=== PATIENT | female | born 1955 | race American Indian/Alaskan Native ===

== ENCOUNTER 2016-11-24 08:17 | Outpatient (CLI) | payer OTHER ==
[2016-11-24] MEDS ORDERED: WATER FOR INJ (PF) 10 ML ONE (09:39)
[2016-11-24] MEDS ORDERED: KINEVAC IV ONE ×2 (09:40→10:00)
[2016-11-24] MEDS ORDERED: WATER FOR INJ (PF) IV SCH (10:00)
--- NOTE | 2016-11-24 15:39 | Nuclear Medicine Report ---
HIDA WITH CCK INDICATION: RUQ pain. History of sludge on a 2015 MRI at [place]. COMPARISON: None similar. FINDINGS: Dynamic right upper quadrant imaging performed in the anterior projection over 60 minutes following uneventful intravenous administration of 5 mCi of Technetium 99m Choletec. Prompt and homogenous hepatic radiotracer uptake with subsequent washout seen with gallbladder bowel activity seen at 20 minutes. Subsequently, 1.5 mcg of cholecystokinin infused intravenously over a period of 3 minutes with the patient's symptoms duplicated. The calculated ejection fraction is 3% (normal greater than 35%). CONCLUSION: Biliary dyskinesia with gallbladder ejection fraction of 3% and patient's symptoms reproduced following CCK, as described. Please correlate. Thank you for the opportunity to participate in this patient's care.
== END 2016-11-24 08:18 | disposition home or self-care (01) ==
LOC: NM 08:17
PROVIDERS: ATTEND Surgery
DX: K82.8 Other specified diseases of gallbladder (principal)
CPT/HCPCS: 78227; A9537; J2805

== ENCOUNTER 2017-01-01 11:07 | Day surgery (SDC) | payer OTHER ==
[~2017-01-01 11:07] MED LIST: ANCEF/STERILE WATER 2 GM/20 ML IV NR
--- NOTE | 2017-01-01 12:36 | Anesthesia Consultation ---
Anesthesia Consult and Med Hx Date of service: 01/01/17 - Airway Anesthetic Teeth Evaluation: Chipped ROM Head & Neck: Adequate Mental/Hyoid Distance: Adequate Mallampati Class: Class I Intubation Access Assessment: Good - Pulmonary Exam CTA: Yes - Cardiac Exam Cardiac Exam: RRR - Pre-Operative Health Status ASA Pre-Surgery Classification: ASA3 Proposed Anesthetic Plan: General - Pulmonary Hx Smoking: No Hx Sleep Apnea: No (RACHEL PRE SCREEN LOW RISK) - Cardiovascular System Hx Hypertension: Yes (X 20 YRS) - Central Nervous System Hx Back Pain: Yes (NECK PAIN) - Endocrine Hx Non-Insulin Dependent Diabetes: Yes - Other Systems Hx Cancer: No - Additional Comments Anesthesia Medical History Comments: Pt. claims slow to wake up after hystoerectomy. NAC otherwise. Will not accept blood products. Cracked teeth: upper right & lower left. One chipped tooth, upper middle.
--- NOTE | 2017-01-01 12:36 | Anesthesia Day of Surgery ---
Anesthesia Day of Surgery - Day of Surgery Patient Examined: Yes Patient H&P Reviewed: Yes Patient is NPO: Yes
[2017-01-01] MEDS ORDERED: VERSED IV PRN (12:37)
[2017-01-01] MEDS ORDERED: PEPCID IV NR (13:00)
[2017-01-01] MEDS ORDERED: NACL 0.9% 1000 ML 1,000 ML IV SCH (13:00)
[2017-01-01] MEDS ORDERED: MARCAINE-EPI/PF 0.25%-1:200,000 INFILTRATI ONE (13:09)
[2017-01-01] MEDS ORDERED: NACL 0.9% IR ONE (13:57)
[2017-01-01] MEDS ORDERED: MARCAINE-EPI 0.25%-1:200,000 INFILTRATI ONE (13:57)
[2017-01-01] MEDS ORDERED: DILAUDID ONE (14:04)
[2017-01-01] MEDS ORDERED: DIPRIVAN 10 MG/ML IV ONE (14:04)
[2017-01-01] MEDS ORDERED: XYLOCAINE MPF 2% ONE (14:04)
[2017-01-01] MEDS ORDERED: ZEMURON IV ONE (14:04)
[2017-01-01] MEDS ORDERED: BREVIBLOC IV ONE (14:21)
[2017-01-01] MEDS ORDERED: ROBINUL ONE ×2 (14:56→15:04)
[2017-01-01] MEDS ORDERED: ZOFRAN ONE (14:56)
[2017-01-01] MEDS ORDERED: TORADOL ONE (14:56)
[2017-01-01] MEDS ORDERED: NEOSTIGMINE ONE (14:58)
[2017-01-01] MEDS ORDERED: NACL 0.9% 1000 ML 1,000 ML ONE (14:59)
--- NOTE | 2017-01-01 15:00 | Operative Report ---
Operative Report Operative Report: Date of procedure: 01/01/2017 Pre-operative diagnosis: Biliary dyskinesia Post-operative diagnosis: Same Procedure name(s): Laparoscopic cholecystectomy Surgeon: Liane Carney MD Plant Technical Specialist: Hansel Nicolas M.D. Anesthesia: General EBL: Minimal Complications: None Instrument Count: correct Indications: This is a 61-year-old female with a history of abdominal pain. She was offered the above-named procedures possible treatment modality. The risks and benefits of discuss until all questions were answered. She was subsequently brought to the OR. Findings: As above Procedure: We reviewed the informed consent. We placed the patient supine upon the table. After adequate anesthesia was reached, the patient was prepped and draped in usual sterile fashion. A 5 mm incision was made the level of umbilicus and a Veress needle was placed at this position. The abdomen was then insufflated to 15 mmHg and a 5 mm trocar was placed through the umbilical incision. We inserted the camera at this time. Under direct vision and after infiltration of local anesthetic an 11 mm port was placed in the epigastric location. This was followed by placement of two five mm ports in the right upper quadrant. We identified the gallbladder and the fundus was grasped. This was retracted superiorly. We then grasped the infundibulum and retracted it laterally. At this time we dissected free the cystic duct infundibular junction until the triangle of Calot was clearly identified. We placed 3 clips proximally on the cystic duct, 2 distally. We placed 2 clips proximally on the cystic artery. We transected the cystic duct sharply. We transected the cystic artery using electrocautery. We then dissected the gallbladder free from its fossa using electrocautery. This was placed in Endo Catch bag and removed the abdomen to be sent to pathology for further evaluation. We assured hemostasis at this time. We then evacuated the insufflation. We removed all ports and closed all port sites using a 4-0 Monocryl in a subcuticular fashion. The wounds were bandaged sterilely. The patient tolerated procedure well. They were taken to PACU in no apparent distress after extubation.
--- NOTE | 2017-01-01 15:04 | Short Stay Summary ---
Short Stay Documentation Date of service: 01/01/17 - Allergies and Medications Current Medications: Allergies codeine Adverse Reaction (Verified 12/12/16 14:06) Nausea,VOMITING SICK FEELING Home Medications Medication Instructions Recorded Confirmed Last Taken Type Hydrochlorothiazide [HCTZ] 25 mg PO QDAY 12/12/16 01/01/17 01/01/17 08:00 History Lisinopril [Zestril] 10 mg PO QDAY 12/12/16 01/01/17 01/01/17 08:00 History Metformin HCl [Glucophage] 500 mg PO BID 12/12/16 01/01/17 12/31/16 11:00 History Omega3,5,6,7,9 No.1/[place] Oil 1 cap PO DAILY 12/12/16 01/01/17 12/26/16 09:00 History [Complete [place] Softgel] Vitamin E 1,000 unit PO DAILY 12/12/16 01/01/17 12/26/16 09:00 History amLODIPine [Norvasc] 10 mg PO DAILY 12/12/16 01/01/17 01/01/17 08:00 History glipiZIDE [Glucotrol] 5 mg PO QDAY 12/12/16 01/01/17 12/31/16 11:00 History Active Medications Cefazolin Sodium (Ancef/Sterile Water 2 Gm/20 Ml) 2 gm IV PREOP NR Stop: 01/01/17 21:00 Sodium Chloride (Nacl 0.9% 1000 Ml) 1,000 mls @ 42 mls/hr IV DIRECT ASPEN Last Admin: 01/01/17 12:47 Dose: 42 mls/hr Midazolam HCl (Versed) 2 mg IV PREOP PRN PRN Reason: Agitation Stop: 01/01/17 23:59 Last Admin: 01/01/17 12:47 Dose: 2 mg - Brief post op/procedure progress note Date of procedure: 01/01/17 Pre-op diagnosis: biliary dyskinesia Post-op diagnosis: same Procedure: Laparoscopic cholecystectomy Anesthesia: GIOVANNAA Surgeon: KJ ANDRADE Brand Inspector: SOPHIE NETTLES Estimated blood loss: minimal Pathology: list (gallbladder) Specimen disposition: to lab Condition: stable - Disposition Condition at discharge: Stable Disposition: DC-01 TO HOME OR SELFCARE Short Stay Discharge Plan Activity: no restrictions Diet: low fat Wound: open to air, keep clean and dry Follow up with: MEHNAZ STAUFFER MD [Primary Care Provider] - 7 Days KJ ANDRADE MD [Staff Physician] - 7 Days Prescriptions: oxyCODONE /ACETAMINOPHEN [Percocet 5/325] 1 tab PO Q6HR PRN #30 tablet PRN Reason: Pain
[2017-01-01] MEDS ORDERED: TRANSDERM-SCOP TD ONE (16:36)
[2017-01-01 17:00] VITALS: BP 108/68
== END 2017-01-01 16:50 | disposition home or self-care (01) ==
LOC: OR 11:07
PROVIDERS: ATTEND Surgery
DX: K82.8 Other specified diseases of gallbladder (principal); I10 Essential (primary) hypertension; E10.65 Type 1 diabetes mellitus with hyperglycemia; Z90.710 Acquired absence of both cervix and uterus; Z88.5 Allergy status to narcotic agent; Z79.899 Other long term (current) drug therapy; Z79.84 Long term (current) use of oral hypoglycemic drugs; Z83.3 Family history of diabetes mellitus; Z82.49 Family history of ischemic heart disease and other diseases of the circulatory system
CPT/HCPCS: 36415; 47562; 82962; 84132; 88304; J0690; J1170; J1885; J2250; J2405; J2704; J2710; J7030